=== PATIENT | female | born 1990 | race African-American/Black ===

== ENCOUNTER 2019-03-15 20:16 | Emergency (ER) | payer SELFPAY ==
[~2019-03-15] VITALS: Ht 170.2 cm; Wt 63.5 kg
[2019-03-15 21:12] LABS: BASO % 1 % (0-3); EOS # 0.1 x10^3/uL (0.0-0.7); EOS % 1 % (0-3); HEMATOCRIT 23.8 % (36.0-47.0); HEMOGLOBIN 7.4 g/dL (12.0-15.5); LYMPH # 3.4 x10^3/uL (1.0-4.8); LYMPH % 54 % (24-48); MEAN CORPUSCULAR HEMOGLOBIN 18 pg (25-35); MEAN CORPUSCULAR HGB CONC 31 g/dL (31-37); MEAN CORPUSCULAR VOLUME 56 fL (79-100); MONO # 0.3 x10^3/uL (0.0-1.1); MONO % 5 % (0-9); NEUT # 2.5 x10^3/uL (1.8-7.7); NEUT % 40 % (31-73); PLATELET COUNT 353 x10^3/uL (140-400); RED BLOOD COUNT 4.22 x10^6/uL (3.50-5.40); RED CELL DISTRIBUTION WIDTH 22.6 % (11.5-14.5); WHITE BLOOD COUNT 6.4 x10^3/uL (4.0-11.0)
[2019-03-15 21:19] LABS: CALCIUM 8.8 mg/dL (8.5-10.1); POTASSIUM 3.6 mmol/L (3.5-5.1)
[2019-03-15 21:27] LABS: ALBUMIN 3.9 g/dL (3.4-5.0); ALBUMIN/GLOBULIN RATIO 1.1 (1.0-1.7); MAGNESIUM 1.7 mg/dL (1.8-2.4); TOTAL BILIRUBIN 0.2 mg/dL (0.2-1.0); TOTAL PROTEIN 7.3 g/dL (6.4-8.2)
--- NOTE | 2019-03-15 21:27 | PHYS DOC ---
Past Medical History Past Medical History: Anemia, Asthma Past Surgical History: No Surgical History Smoking: Less than 1pk/day Alcohol Use: None Drug Use: Marijuana Adult General Chief Complaint Chief Complaint: DIZZY/LIGHT HEADED HPI HPI Patient is a 28 year old female wit hx of Iron def anemia who presents with dizziness and HORNER. Pt reports having dizziness and generalized HORNER around noon. She took some tylenol 500mg at 1pm and 4 aspirin earlier this evening without any relieve. She rates her HORNER as 8/10. She has hx of anemia that she takes 4 iron tablets daily. Pt also reports fatigue and SOB. She has hx of significant weight loss (10-20lbs loss per week) and her PCP has been doing multiple workups for this. Due to her hx of menorrhagia and abdominal cramping, she was placed on Depo provera 2 months ago and her previous CT scan 2 months ago result was unremarkable. Pt denies any N/V, chest pain, constipation, diarrhea. Review of Systems Review of Systems Constitutional: Denies fever or chills [] Eyes: Denies change in visual acuity, redness, or eye pain [] HENT: Denies nasal congestion or sore throat [] Respiratory: Denies cough or shortness of breath [] Cardiovascular: No additional information not addressed in HPI [] GI: Denies abdominal pain, nausea, vomiting, bloody stools or diarrhea [] : Denies dysuria or hematuria [] Musculoskeletal: Denies back pain or joint pain [] Integument: Denies rash or skin lesions [] Neurologic: Denies headache, focal weakness or sensory changes [] Endocrine: Denies polyuria or polydipsia [] All other systems were reviewed and found to be within normal limits, except as documented in this note. Current Medications Current Medications Current Medications Medications (Trade) Dose Ordered Sig/Chance Start Time Stop Time Status Last Admin Dose Admin Dexamethasone Sodium Phosphate (Decadron) 10 mg 1X ONCE 03/15/19 21:30 03/15/19 21:31 DC Diphenhydramine HCl (Benadryl) 25 mg 1X ONCE 03/15/19 21:30 03/15/19 21:31 DC Ketorolac Tromethamine (Toradol 15mg Vial) 15 mg 1X ONCE 03/15/19 21:30 03/15/19 21:31 DC Metoclopramide HCl (Reglan Vial) 10 mg 1X ONCE 03/15/19 21:30 03/15/19 21:31 DC Sodium Chloride 1,000 ml @ 1,000 mls/hr 1X ONCE 03/15/19 21:30 03/15/19 22:29 DC 03/15/19 21:09 1,000 MLS/HR Allergies Allergies Allergies Coded Allergies Type Severity Reaction Last Updated Verified No Known Drug Allergies 03/15/19 No Physical Exam Physical Exam Constitutional: Well developed, well nourished, no acute distress, non-toxic appearance. [] HENT: Normocephalic, atraumatic, bilateral external ears normal, oropharynx moist, no oral exudates, nose normal. [] Eyes: PERRLA, EOMI, conjunctiva normal, no discharge. [] Neck: Normal range of motion, no tenderness, supple, no stridor. [] Cardiovascular:Heart rate regular rhythm, no murmur [] Lungs & Thorax: Bilateral breath sounds clear to auscultation [] Abdomen: Bowel sounds normal, soft, no tenderness, no masses, no pulsatile masses. [] Skin: Warm, dry, no erythema, no rash. [] Back: No tenderness, no CVA tenderness. [] Extremities: No tenderness, no cyanosis, no clubbing, ROM intact, no edema. [] Neurologic: Alert and oriented X 3, normal motor function, normal sensory function, no focal deficits noted. [] Psychologic: Affect normal, judgement normal, mood normal. [] Current Patient Data Vital Signs Vital Signs Date Time Temp Pulse Resp B/P (MAP) Pulse Ox O2 Delivery O2 Flow Rate FiO2 03/15/19 23:15 64 100 03/15/19 20:16 98.2 16 122/69 (86) Room Air 98.2 Lab Values Laboratory Tests Test 03/15/19 20:30 03/15/19 21:30 White Blood Count 6.4 x10^3/uL (4.0-11.0) Red Blood Count 4.22 x10^6/uL (3.50-5.40) Hemoglobin 7.4 g/dL (12.0-15.5) L Hematocrit 23.8 % (36.0-47.0) L Mean Corpuscular Volume 56 fL (79-100) L Mean Corpuscular Hemoglobin 18 pg (25-35) L Mean Corpuscular Hemoglobin Concent 31 g/dL (31-37) Red Cell Distribution Width 22.6 % (11.5-14.5) H Platelet Count 353 x10^3/uL (140-400) Neutrophils (%) (Auto) 40 % (31-73) Lymphocytes (%) (Auto) 54 % (24-48) H Monocytes (%) (Auto) 5 % (0-9) Eosinophils (%) (Auto) 1 % (0-3) Basophils (%) (Auto) 1 % (0-3) Neutrophils # (Auto) 2.5 x10^3/uL (1.8-7.7) Lymphocytes # (Auto) 3.4 x10^3/uL (1.0-4.8) Monocytes # (Auto) 0.3 x10^3/uL (0.0-1.1) Eosinophils # (Auto) 0.1 x10^3/uL (0.0-0.7) Basophils # (Auto) 0.0 x10^3/uL (0.0-0.2) Segmented Neutrophils % 52 % (35-66) Lymphocytes % 44 % (24-48) Monocytes % 2 % (0-10) Eosinophils % 2 % (0-5) Platelet Estimate Adequate (ADEQUATE) Polychromasia Slight Hypochromasia Marked Poikilocytosis Slight Anisocytosis Mod Microcytosis Marked Ovalocytes Occ Helmet Cells Occ Schistocytes Occ Sodium Level 140 mmol/L (136-145) Potassium Level 3.6 mmol/L (3.5-5.1) Chloride Level 106 mmol/L (98-107) Carbon Dioxide Level 21 mmol/L (21-32) Anion Gap 13 (6-14) Blood Urea Nitrogen 16 mg/dL (7-20) Creatinine 1.0 mg/dL (0.6-1.0) Estimated GFR (Cockcroft-Gault) 67.0 BUN/Creatinine Ratio 16 (6-20) Glucose Level 93 mg/dL (70-99) Calcium Level 8.8 mg/dL (8.5-10.1) Magnesium Level 1.7 mg/dL (1.8-2.4) L Total Bilirubin 0.2 mg/dL (0.2-1.0) Aspartate Amino Transferase (AST) 19 U/L (15-37) Alanine Aminotransferase (ALT) 18 U/L (14-59) Alkaline Phosphatase 44 U/L (46-116) L Total Protein 7.3 g/dL (6.4-8.2) Albumin 3.9 g/dL (3.4-5.0) Albumin/Globulin Ratio 1.1 (1.0-1.7) Urine Collection Type Unknown Urine Color Yellow Urine Clarity Clear Urine pH 6.5 Urine Specific [place] 1.015 Urine Protein Negative mg/dL (NEG-TRACE) Urine Glucose (UA) Negative mg/dL (NEG) Urine Ketones (Stick) Negative mg/dL (NEG) Urine Blood Trace (NEG) Urine Nitrite Negative (NEG) Urine Bilirubin Negative (NEG) Urine Urobilinogen Dipstick 1.0 mg/dL (0.2 mg/dL) Urine Leukocyte Esterase Small (NEG) Urine RBC 1-2 /HPF (0-2) Urine WBC 5-10 /HPF (0-4) Urine Squamous Epithelial Cells Many /LPF Urine Bacteria Moderate /HPF (0-FEW) Urine Mucus Mod /LPF Urine Test Negative (NEG) Urine Opiates Screen Neg (NEG) Urine Methadone Screen Neg (NEG) Urine Barbiturates Neg (NEG) Urine Phencyclidine Screen Neg (NEG) Urine Amphetamine/Methamphetamine Neg (NEG) Urine Benzodiazepines Screen Neg (NEG) Urine Cocaine Screen Neg (NEG) Urine Cannabinoids Screen Pos (NEG) Urine Ethyl Alcohol Neg (NEG) Laboratory Tests 03/15/19 20:30 Laboratory Tests 03/15/19 20:30 EKG EKG @2112 NSR at 60bpm; nonspecific t wave inversion V1-V2; J point elevation: I- III, aVF and V4-V6 Radiology/Procedures Radiology/Procedures [] Course & Med Decision Making Course & Med Decision Making Pertinent Labs and Imaging studies reviewed. (See chart for details) [] Dragon Disclaimer Dragon Disclaimer This electronic medical record was generated, in whole or in part, using a voice recognition dictation system. Departure Departure Impression: Primary Impression: Dizziness Additional Impressions: Anemia Headache Disposition: 01 HOME, SELF-CARE Condition: STABLE Patient Instructions: Anemia, FAQs, Dizziness, [id number], Headache, FAQs Scripts Ondansetron (ONDANSETRON ODT) 4 Mg Tab.rapdis 1 TAB PO PRN Q6-8HRS PRN for NAUSEA, #16 TAB Prov: SUSSY DIAMOND DO 03/15/19 Problem Qualifiers Additional Impressions: Anemia Anemia type: unspecified type Qualified Codes: D64.9 - Anemia, unspecified Headache Headache type: unspecified Headache chronicity pattern: acute headache Intractability: not intractable Qualified Codes: R51 - Headache SUSSY DIAMOND DO Mar 15, 2019 21:27
[2019-03-15] MEDS ORDERED: DEXAMETHASONE SOD PHOS 20 MG/5 ML VIAL. IV ONE (21:30)
[2019-03-15] MEDS ORDERED: KETOROLAC 15 MG/ML VIAL. IV ONE (21:30)
[2019-03-15] MEDS ORDERED: IV NORMAL SALINE 1000ML BAG 1,000 ML IV ONE (21:30)
[2019-03-15] MEDS ORDERED: diphenhydrAMINE 50 MG/ML VIAL IVP ONE (21:30)
[2019-03-15] MEDS ORDERED: METOCLOPRAMIDE HCL 10 MG/2 ML VIAL. IV ONE (21:30)
[2019-03-15 21:38] LABS: % EOS 2 % (0-5); % LYMPHS 44 % (24-48); % MONOS 2 % (0-10); % SEGS 52 % (35-66); ANISOCYTOSIS MOD; HELMET CELLS OCC; HYPOCHROMIA MARKED; MICROCYTOSIS MARKED; OVALOCYTES OCC; PLT ESTIMATE ADEQUATE (ADEQUATE); POIKILOCYTOSIS SLIGHT; POLYCHROMASIA SLIGHT; SCHISTOCYTES OCC
[2019-03-15 21:40] LABS: BILIRUBIN,URINE NEGATIVE (NEG); CLARITY,URINE CLEAR; COLOR,URINE YELLOW; NITRITE,URINE NEGATIVE (NEG); PH,URINE 6.5; PROTEIN,URINE NEGATIVE (NEG-TRACE)
[2019-03-15 21:46] LABS: BARBITURATES NEG (NEG); BENZODIAZEPINES NEG (NEG); CANNABINOIDS POS (NEG); COCAINE NEG (NEG); METHADONE NEG (NEG); OPIATES NEG (NEG); PHENCYCLIDINE NEG (NEG)
[2019-03-15 21:47] LABS: SQUAMOUS EPITHELIAL CELL,UR MANY /LPF
[2019-03-15 21:48] LABS: BACTERIA,URINE MODERATE /HPF (0-FEW)
[2019-03-15 21:54] LABS: AMPHETAMINE/METHAMPHETAMINE NEG (NEG)
[2019-03-15 22:23] LABS: U PREG PATIENT NEGATIVE (NEG)
--- NOTE | 2019-03-15 23:01 | RAD ---
PA and lateral chest. HISTORY: Short of air, PA and lateral views were taken of the chest. Lungs are clear. Heart is normal in size. There is no pleural effusion. IMPRESSION: 1. No acute chest disease. Electronically signed by: Nick Diallo MD (03/15/2019 10:58 PM) [id number]
[2019-03-15 23:15] VITALS: BP 112/68
[2019-03-15] MEDS ORDERED: ONDA4TAB12 PO (23:15)
--- NOTE | 2019-03-18 06:33 | EKG ---
[facility] [address] [place] [address] Test Date: 2019-03-15 Test Time: 21:12:37 Pat Name: LEO AL Department: Room: Gender: F Core Mounter: : 1990 Requested By: SUSSY DIAMOND Order Number: [id number] Reading MD: Measurements Intervals Bath Rate: 60 P: 48 PA: 142 QRS: 77 QRSD: 78 T: 59 QT: 404 QTc: 404 Interpretive Statements SINUS RHYTHM NO SPECIFIC ECG ABNORMALITIES RI6.01 No previous ECG available for comparison
== END 2019-03-15 23:25 | disposition home or self-care (01) ==
LOC: ER 20:16
DX: R42 Dizziness and giddiness (principal); D64.9 Anemia, unspecified; R51 Headache; F17.200 Nicotine dependence, unspecified, uncomplicated; J45.909 Unspecified asthma, uncomplicated
CPT/HCPCS: 36415; 71046; 80053; 80307; 81001; 81025; 83735; 85007; 85025; 87086; 93005; 99285; J7030